=== PATIENT | female | born 1995 | race Caucasian/White ===

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

== ENCOUNTER 2017-09-17 12:08 | Emergency (ER) | payer OTHER ==
[2017-09-17] MEDS: ACETAMINOPHEN 325 MG TAB PO (12:32)
== END 2017-09-17 13:38 | disposition home or self-care (01) ==
LOC: M ED 12:08
DX: F43.0 Acute stress reaction (principal); Z79.899 Other long term (current) drug therapy
CPT/HCPCS: 99284

== ENCOUNTER 2017-12-22 11:03 | Emergency (ER) | payer OTHER ==
[2017-12-22] MEDS ORDERED: NS 1,000 ML IV (12:45)
== END 2017-12-22 13:15 | disposition left against medical advice (07) ==
LOC: M ED 11:03
DX: K62.5 Hemorrhage of anus and rectum (principal); D64.9 Anemia, unspecified; F31.9 Bipolar disorder, unspecified; M51.9 Unspecified thoracic, thoracolumbar and lumbosacral intervertebral disc disorder; Z79.899 Other long term (current) drug therapy
CPT/HCPCS: 99282